=== PATIENT | female | born 1960 | race Two or more races ===

== ENCOUNTER 2018-05-04 19:00 | Emergency (ER) | payer MEDICAID ==
[~2018-05-04] VITALS: Ht 167.6 cm; Wt 86.2 kg
--- NOTE | 2018-05-04 19:30 | NUR ---
CALLED PT TO BE TRAIGED 3X, NO ANSWER
[2018-05-04] MEDS ORDERED: KETOROLAC TROMETHAMINE INJ 30 MG/ML VIAL ONE (19:44)
[2018-05-04 19:57] VITALS: BP 119/70
[2018-05-04] MEDS ORDERED: KETOROLAC TROMETHAMINE INJ 30 MG/ML VIAL IM ONE (20:00)
== END 2018-05-04 21:25 | disposition home or self-care (01) ==
LOC: ER 19:04
DX: M62.838 Other muscle spasm (principal); V49.59XA Passenger injured in collision with other motor vehicles in traffic accident, initial encounter; Y93.89 Activity, other specified; Y92.410 Unspecified street and highway as the place of occurrence of the external cause; Y99.8 Other external cause status
CPT/HCPCS: 72040; 96372; 99283; A4606; J1885; Z7610